=== PATIENT | male | born 1945 | race Caucasian/White ===

== ENCOUNTER 2021-02-28 11:44 | Outpatient (CLI) | payer MEDICARE, BC | END 2021-02-28 11:45 | disposition home or self-care (01) | LOC: CSHCT 11:44 | PROVIDERS: ATTEND Urology | DX: C61 Malignant neoplasm of prostate (principal) | CPT/HCPCS: 72197; 74178; 82565 ==

== ENCOUNTER 2022-05-06 14:28 | Outpatient (CLI) | payer MEDICARE, BC | END 2022-05-06 14:29 | disposition home or self-care (01) | LOC: CSHMRI 14:28 | PROVIDERS: ATTEND Nurse Practitioner Family | DX: M47.816 Spondylosis without myelopathy or radiculopathy, lumbar region (principal) | CPT/HCPCS: 72148 ==

== ENCOUNTER 2024-12-16 12:49 | Outpatient (CLI) | payer MEDICARE, BC | END 2024-12-16 12:50 | disposition home or self-care (01) | LOC: CSHWCC 12:49 | PROVIDERS: ATTEND Nurse Practitioner Family | DX: N30.41 Irradiation cystitis with hematuria (principal); N39.498 Other specified urinary incontinence | CPT/HCPCS: 99213; G0463 ==

== ENCOUNTER 2025-01-09 09:29 | Outpatient (CLI) | payer MEDICARE, BC | END 2025-01-09 09:30 | disposition home or self-care (01) | LOC: CSHWCC 09:29 | PROVIDERS: ATTEND Nurse Practitioner Family | DX: T70.0XXD Otitic barotrauma, subsequent encounter (principal); N30.41 Irradiation cystitis with hematuria; N39.498 Other specified urinary incontinence | CPT/HCPCS: G0277 ==

== ENCOUNTER 2025-01-10 08:40 | Outpatient (CLI) | payer MEDICARE, BC | END 2025-01-10 08:41 | disposition home or self-care (01) | LOC: CSHWCC 08:40 | PROVIDERS: ATTEND Nurse Practitioner Family | DX: T70.0XXD Otitic barotrauma, subsequent encounter (principal); N30.41 Irradiation cystitis with hematuria; N39.498 Other specified urinary incontinence | CPT/HCPCS: G0277 ==

== ENCOUNTER 2025-01-17 10:00 | Outpatient (CLI) | payer MEDICARE, BC | END 2025-01-17 10:01 | disposition home or self-care (01) | LOC: CSHWCC 10:00 | PROVIDERS: ATTEND Nurse Practitioner Family | DX: T70.0XXD Otitic barotrauma, subsequent encounter (principal); N30.41 Irradiation cystitis with hematuria; N39.498 Other specified urinary incontinence | CPT/HCPCS: G0277 ==

== ENCOUNTER 2025-01-18 10:02 | Outpatient (CLI) | payer MEDICARE, BC | END 2025-01-18 10:03 | disposition home or self-care (01) | LOC: CSHWCC 10:02 | PROVIDERS: ATTEND Nurse Practitioner Family | DX: T70.0XXD Otitic barotrauma, subsequent encounter (principal); N30.41 Irradiation cystitis with hematuria; N39.498 Other specified urinary incontinence | CPT/HCPCS: G0277 ==